=== PATIENT | male | born 1980 | race Caucasian/White ===

== ENCOUNTER → 2017-11-05 | Emergency (ER) | payer OTHER ==
[~2017-11-05] VITALS: Ht 170.2 cm; Wt 61.2 kg
[~2017-11-05] MED LIST: ALBUTEROL0.63 MG/3; GABAPENTIN300 MG; SYMBYAX 12-251 EACH; TRAZODONE HCL50 MG
== END | disposition left against medical advice (07) ==
LOC: ER 00:06
DX: S00.83XA Contusion of other part of head, initial encounter (principal); Y08.89XA Assault by other specified means, initial encounter; Y93.89 Activity, other specified; Y92.89 Other specified places as the place of occurrence of the external cause; Y99.8 Other external cause status